=== PATIENT | male | born 1955 | race Two or more races ===

== ENCOUNTER 2016-12-30 02:00 | Emergency (ER) | payer OTHER ==
[2016-12-30] MEDS ORDERED: SODIUM CHLORIDE 0.9% 1,000 ML IV ONE (02:12)
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
[2016-12-30 02:17] VITALS: TEMP 98.6
[2016-12-30 04:10] VITALS: RESP 18
[2016-12-30 08:07] VITALS: BP 132/89; PULSE 77
--- NOTE | 2016-12-31 05:36 | CDI ---
Dear Rodrick Carvalho MD: Please do addendum Impression and Disposition. Thank you, Jef Verduzco, Lab Systems Analyst. If you have any questions, please contact Brick Paving Checker at [phone]. [facility]
== END 2016-12-30 08:07 | disposition home or self-care (01) ==
LOC: EC 02:00
DX: F10.129 Alcohol abuse with intoxication, unspecified (principal)
CPT/HCPCS: 82075; 96360; 96361; 99284

== ENCOUNTER 2017-04-10 06:14 | Emergency (ER) | payer OTHER ==
--- NOTE | 2017-04-10 07:21 | ED ---
URI HPI - General Chief Complaint: Upper Respiratory Infection Stated Complaint: Flu like symptoms Time Seen by Provider: 04/10/17 07:00 Source: patient, RN notes reviewed Mode of arrival: ambulatory Limitations: no limitations - History of Present Illness Initial Comments: This is a 61-year-old male with hypertension for a past medical history who is a nonsmoker who states he had the onset about 3 days ago flulike symptoms cough that was productive chills possibly some fever he states the symptoms last about 3 days and get better but then this morning they seem to recur did a cough with phlegm rhinorrhea felt cold with generalized body aches especially to his feet and legs. He denies any overt headache at this time no overt shortness of breath no nausea vomiting diarrhea. MD Complaint: cough, rhinorrhea, nasal congestion, other - Related Data Home Medications Medication Instructions Recorded Confirmed Hydrochlorothiazide [Hydrodiuril] 25 mg PO DAILY 04/10/17 04/10/17 Hydrocodone/Acetaminophen 1 - 2 tab PO Q12HR PRN 04/10/17 04/10/17 [Hydrocodone/Acetaminophen 5-300] Lisinopril [Zestril] 10 mg PO DAILY 04/10/17 04/10/17 Previous Rx's Medication Instructions Recorded Oseltamivir [Tamiflu] 75 mg PO Q12HR #14 cap 04/10/17 Allergies Allergy/AdvReac Type Severity Reaction Status Date / Time No Known Allergies Allergy Verified 12/30/16 08:06 Review of Systems ROS Statement: Those systems with pertinent positive or pertinent negative responses have been documented in the HPI. ROS Other: All systems not noted in ROS Statement are negative. Past Medical History Past Medical History: No Reported History, Hypertension Additional Past Medical History / Comment(s): Chronic back pain History of Any Multi-Drug Resistant Organisms: None Reported Past Surgical History: Orthopedic Surgery Additional Past Surgical History / Comment(s): foot and leg sx Past Psychological History: No Psychological Hx Reported Smoking Status: Never smoker Past Alcohol Use History: Occasional Past Drug Use History: None Reported General Exam - General Exam Comments Initial Comments: This is a well-developed well-nourished awake alert oriented 3 male Limitations: no limitations General appearance: alert, in no apparent distress Head exam: Present: atraumatic, normocephalic, normal inspection Eye exam: Present: normal appearance, PERRL, EOMI. Absent: scleral icterus, conjunctival injection, periorbital swelling ENT exam: Present: mucous membranes moist, other (Boggy nasal mucosa with clear drainage seen. The oropharynx is essentially clear TMs are slightly dull but normal color.) Neck exam: Present: normal inspection, full ROM, other (No stridor JVD or bruits ). Absent: tenderness, meningismus, lymphadenopathy Respiratory exam: Present: normal lung sounds bilaterally. Absent: respiratory distress, wheezes, rales, rhonchi, stridor Cardiovascular Exam: Present: regular rate, normal rhythm, normal heart sounds. Absent: systolic murmur, diastolic murmur, rubs, gallop, clicks GI/Abdominal exam: Present: soft, normal bowel sounds. Absent: distended, tenderness, guarding, rebound, rigid Extremities exam: Present: normal inspection, full ROM, normal capillary refill. Absent: tenderness, pedal edema, joint swelling, calf tenderness Back exam: Present: normal inspection Neurological exam: Present: alert, oriented X3, CN II-XII intact Psychiatric exam: Present: normal affect, normal mood Skin exam: Present: warm, dry, intact, normal color. Absent: rash Course Vital Signs 04/10/17 06:16 Temperature 96.9 F L Pulse Rate 72 Respiratory 20 Rate O2 Sat by Pulse 98 Oximetry Medical Decision Making - Medical Decision Making I did discuss the findings with the patient has . Patient does have evidence clinically lab results of influenza type A. He does appear the symptoms just started this morning as he had a day between his previous illness and the onset of this occurrence. Patient will be started on Tamiflu. I did discuss hydration and symptomatic care with him. - Lab Data Lab Results 04/10/17 Range/Units 06:28 Influenza Type A RNA Detected H (Not Detectd) Influenza Type B (PCR) Not Detected (Not Detectd) - Radiology Data Radiology results: report reviewed (I did review the imaging and reports no acute findings are seen.), image reviewed Disposition Clinical Impression: Influenza Disposition: HOME SELF-CARE Condition: Good Instructions: Influenza (ED) Prescriptions: Oseltamivir [Tamiflu] 75 mg PO Q12HR #14 cap Referrals: Louie Juarez MD [Primary Care Provider] - 1-2 days
[2017-04-10] MEDS ORDERED: OSELTAMIVIR 75 MG CAP PO STA (07:30)
--- NOTE | 2017-04-10 07:35 | XR ---
EXAMINATION TYPE: XR chest 2V DATE OF EXAM: 04/10/2017 HISTORY: cough. REFERENCE: NONE. FINDINGS: The lungs are clear. Pleural space are clear. The heart is not enlarged. IMPRESSION: NO ACTIVE INTRATHORACIC DISEASE.
[2017-04-10 07:54] VITALS: BP 136/74; PULSE 76; RESP 16; TEMP 97.5
== END 2017-04-10 07:54 | disposition home or self-care (01) ==
LOC: EC 06:14
DX: J09.X2 Influenza due to identified novel influenza A virus with other respiratory manifestations (principal); I10 Essential (primary) hypertension; Z79.899 Other long term (current) drug therapy
CPT/HCPCS: 71046; 87502; 99283

== ENCOUNTER 2017-07-19 09:53 | Day surgery (SDC) | payer OTHER ==
[2017-07-16 08:47] VITALS: BMI 28.1
[~2017-07-19 09:53] MED LIST: LIDOCAINE 1% 20 ML VIAL (10MG/ML) FOR IV START INTRADERMA PRN; MIDAZOLAM 2 MG/2 ML VIAL IV PRN
[2017-07-19 10:19] VITALS: TEMP 97.2
[2017-07-19] MEDS: LACTATED RINGERS 1,000 ML IV SCH ×2 (10:19→11:06)
[2017-07-19] MEDS ORDERED: LIDOCAINE 1% 20 ML VIAL (10MG/ML) FOR IV START INTRADERMA ONE (10:19)
[2017-07-19] MEDS ORDERED: PROPOFOL 10 MG/ML 20 ML VIAL IV ONE (11:08)
[2017-07-19 11:47] VITALS: RESP 18
--- NOTE | 2017-07-19 11:55 | P.PCN ---
Date of Procedure: 07/19/17 Procedure(s) Performed: Procedure: Colonoscopy and polypectomy. Preoperative diagnosis: Screening for neoplasia, patient has history of polyps. Postoperative diagnosis: 1. Diverticulosis with no evidence of acute diverticulitis or strictures. 2. Two right colon polyps and 1 sigmoid polyp snared but no large polyps or cancer. Preparation: HalfLytely prep. Sedation: Was provided by anesthesia. Brief clinical history: The patient is a 61-year-old male who is scheduled for this evaluation for screening for neoplasia because of history of polyps. His last exam was in 2013. At this time, he has no abdominal complaints, leading or anemia. Procedure: With the patient on his left lateral decubitus position and after informed consent and adequate sedation, the perianal area was inspected and it did not show any fissures or fistulas. There were no masses felt on digital rectal examination. The Olympus CFQ 160L video colonoscope was then inserted in the rectum in the usual fashion and advanced to the cecum. There were multiple diverticular orifices seen scattered in the sigmoid and few around the hepatic flexure and on the right side but there was no evidence of acute diverticulitis or strictures. On the right side there were 2 polyps which were small to medium in size, those were snared and retrieved, one by suction and the other by suctioning it to the tip of the endoscope and withdrawing the endoscope and restarting the exam. There was another polyp in the distal sigmoid which was snared and retrieved by suction but there were no large polyps or cancer. I retroflexed the endoscope in the rectum before the endoscope was withdrawn. The patient tolerated the procedure well. Plan: The patient was reassured. Discussed dietary measures. He will follow up with you as planned and I recommended repeat exam in 3-5 years.
[2017-07-19 12:08] VITALS: BP 143/86; PULSE 52
== END 2017-07-19 12:33 | disposition home or self-care (01) ==
LOC: ORWHC2ENDO 09:53
DX: Z12.11 Encounter for screening for malignant neoplasm of colon (principal); D12.2 Benign neoplasm of ascending colon; D12.5 Benign neoplasm of sigmoid colon; K57.30 Diverticulosis of large intestine without perforation or abscess without bleeding; Z86.010 Personal history of colon polyps; I10 Essential (primary) hypertension; Z79.899 Other long term (current) drug therapy
CPT/HCPCS: 88305; 45385; J2704

== ENCOUNTER 2021-10-22 01:21 | Emergency (ER) | payer OTHER ==
--- NOTE | 2021-10-22 01:57 | ED ---
General Adult HPI - General Chief complaint: Alcohol Stated complaint: Altered Mental, Loss of consciousness Time Seen by Provider: 10/22/21 01:34 Source: patient Mode of arrival: ambulatory Limitations: altered mental status - History of Present Illness Initial comments: This patient is a 65-year-old man who states that "I just decided to turn myself and because I am homeless." Patient states he has been drinking and smoking weed and then felt funny. He states he doesn't feel sick but he feels funny. Patient denies having a fall or head injury. No headache. No neck pain. No chest pain or dyspnea. No abdominal pain or vomiting. -: hour(s) Severity scale (1-10): 0 Consistency: constant Improves with: none Worsens with: none Associated Symptoms: denies other symptoms - Related Data Home Medications Medication Instructions Recorded Confirmed hydroCHLOROthiazide [Hydrodiuril] 12.5 mg PO DAILY 04/10/17 07/16/17 lisinopriL [Zestril] 10 mg PO DAILY 04/10/17 07/16/17 Hydrocodone/Acetaminophen 1 tab PO DAILY PRN 07/16/17 07/16/17 [Hydrocodon-Acetaminoph 2.5-325] Vitamin D (Unknown Dose) 1 cap PO QMONTH 07/16/17 Allergies Allergy/AdvReac Type Severity Reaction Status Date / Time No Known Allergies Allergy Verified 10/22/21 01:32 Review of Systems ROS Statement: Those systems with pertinent positive or pertinent negative responses have been documented in the HPI. ROS Other: All systems not noted in ROS Statement are negative. Constitutional: Denies: fever, weakness Eyes: Denies: vision change Respiratory: Denies: cough, dyspnea Cardiovascular: Denies: chest pain, palpitations, orthopnea Gastrointestinal: Denies: abdominal pain, vomiting, diarrhea Genitourinary: Denies: dysuria Musculoskeletal: Denies: back pain Neurological: Denies: headache Psychiatric: Denies: homicidal thoughts, suicidal thoughts Past Medical History Past Medical History: Hypertension Additional Past Medical History / Comment(s): DDD WITH BACK PAIN, HX OF COLON POLYPS. History of Any Multi-Drug Resistant Organisms: None Reported Past Surgical History: No Surgical Hx Reported Additional Past Surgical History / Comment(s): COLONOSCOPY Past Anesthesia/Blood Transfusion Reactions: No Reported Reaction Past Psychological History: No Psychological Hx Reported Smoking Status: Current every day smoker Past Alcohol Use History: Daily Past Drug Use History: Marijuana - Past Family History Mother Family Medical History: Cancer Additional Family Medical History / Comment(s): OVARIAN CANCER Father Family Medical History: Cancer Additional Family Medical History / Comment(s): LUNG CANCER General Exam Limitations: altered mental status General appearance: alert, in no apparent distress Head exam: Present: atraumatic, normocephalic Eye exam: Present: normal appearance. Absent: scleral icterus, conjunctival i njection Neck exam: Present: normal inspection, full ROM Respiratory exam: Present: normal lung sounds bilaterally. Absent: respiratory distress, wheezes, rales, rhonchi, stridor Cardiovascular Exam: Present: regular rate, normal rhythm, normal heart sounds. Absent: systolic murmur, diastolic murmur, rubs, gallop GI/Abdominal exam: Present: soft. Absent: distended, tenderness, guarding, rebound, rigid, mass Extremities exam: Present: normal inspection, normal capillary refill. Absent: pedal edema, calf tenderness Back exam: Present: normal inspection. Absent: CVA tenderness (R), CVA tenderness (L) Neurological exam: Present: alert Skin exam: Present: warm, dry, intact, normal color. Absent: rash Course Vital Signs 10/22/21 01:27 Temperature 98 F Pulse Rate 54 L Respiratory 18 Rate Blood Pressure 141/87 O2 Sat by Pulse 99 Oximetry Medical Decision Making - Lab Data Result diagrams: 10/22/21 04:45 10/22/21 04:45 Lab Results 10/22/21 10/22/21 10/22/21 Range/Units 01:42 04:45 04:45 WBC 6.1 (3.8-10.6) k/uL RBC 4.95 (4.30-5.90) m/uL Hgb 15.5 (13.0-17.5) gm/dL Hct 47.9 (39.0-53.0) % MCV 96.8 (80.0-100.0) fL MCH 31.4 (25.0-35.0) pg MCHC 32.4 (31.0-37.0) g/dL RDW 12.9 (11.5-15.5) % Plt Count 204 (150-450) k/uL MPV 7.9 Neutrophils % 48 % Lymphocytes % 33 % Monocytes % 8 % Eosinophils % 7 % Basophils % 1 % Neutrophils # 2.9 (1.3-7.7) k/uL Lymphocytes # 2.0 (1.0-4.8) k/uL Monocytes # 0.5 (0-1.0) k/uL Eosinophils # 0.4 (0-0.7) k/uL Basophils # 0.1 (0-0.2) k/uL Sodium 142 (137-145) mmol/L Potassium 4.6 (3.5-5.1) mmol/L Chloride 108 H (98-107) mmol/L Carbon Dioxide 25 (22-30) mmol/L Anion Gap 9 mmol/L BUN 7 L (9-20) mg/dL Creatinine 1.03 (0.66-1.25) mg/dL Est GFR (CKD-EPI)AfAm 87 (>60 ml/min/1.73 sqM) Est GFR (CKD-EPI)NonAf 75 (>60 ml/min/1.73 sqM) Glucose 102 H (74-99) mg/dL Calcium 8.7 (8.4-10.2) mg/dL Total Bilirubin 0.5 (0.2-1.3) mg/dL AST 51 (17-59) U/L ALT 51 H (4-49) U/L Alkaline Phosphatase 55 (38-126) U/L Total Protein 7.2 (6.3-8.2) g/dL Albumin 4.2 (3.5-5.0) g/dL Urine Opiates Screen Not Detected (NotDetected) Ur Oxycodone Screen Not Detected (NotDetected) Urine Methadone Screen Not Detected (NotDetected) Ur Propoxyphene Screen Not Detected (NotDetected) Ur Barbiturates Screen Not Detected (NotDetected) U Tricyclic Antidepress Not Detected (NotDetected) Ur Phencyclidine Scrn Not Detected (NotDetected) Ur Amphetamines Screen Not Detected (NotDetected) U Methamphetamines Scrn Not Detected (NotDetected) U Benzodiazepines Scrn Not Detected (NotDetected) Urine Cocaine Screen Not Detected (NotDetected) U Marijuana (THC) Screen Not Detected (NotDetected) Disposition Clinical Impression: Alcoholic intoxication Disposition: HOME SELF-CARE Condition: Fair Instructions (If sedation given, give patient instructions): Alcohol Intoxication (ED) Is patient prescribed a controlled substance at d/c from ED?: No Referrals: Louie Juarez MD [STAFF PHYSICIAN] - 1-2 days
[2021-10-22 02:38] LABS: Amphetamine Screen,Urine Not Detected (NotDetected); Barbiturate Screen,Urine Not Detected (NotDetected); Benzodiazepines Screen,Urine Not Detected (NotDetected); Cocaine Screen,Urine Not Detected (NotDetected); Methadone Screen, Urine Not Detected (NotDetected); Opiate Screen,Urine Not Detected (NotDetected); Oxycodone Screen, Urine Not Detected (NotDetected); Phencyclidine Screen,Urine Not Detected (NotDetected); Tricyclic Antidepressant,Urine Not Detected (NotDetected); Urn Cannabinoid Scrn Not Detected (NotDetected)
[2021-10-22 05:10] LABS: Basophils # (A) 0.1 k/uL (0-0.2); Basophils % (A) 1 %; Eosinophils # (A) 0.4 k/uL (0-0.7); Eosinophils % (A) 7 %; HCT 47.9 % (39.0-53.0); HGB 15.5 gm/dL (13.0-17.5); Lymphocytes % (A) 33 %; MCH 31.4 pg (25.0-35.0); MCHC 32.4 g/dL (31.0-37.0); MCV 96.8 fL (80.0-100.0); Mean Platelet Volume 7.9; Monocytes # (A) 0.5 k/uL (0-1.0); Monocytes % (A) 8 %; Neutrophils # (A) 2.9 k/uL (1.3-7.7); Neutrophils % (A) 48 %; Platelet Count 204 k/uL (150-450); RBC 4.95 m/uL (4.30-5.90); RDW 12.9 % (11.5-15.5); WBC 6.1 k/uL (3.8-10.6)
[2021-10-22 05:35] LABS: Albumin 4.2 g/dL (3.5-5.0); Calcium 8.7 mg/dL (8.4-10.2); Potassium 4.6 mmol/L (3.5-5.1); Total Bilirubin 0.5 mg/dL (0.2-1.3); Total Protein 7.2 g/dL (6.3-8.2)
[2021-10-22 06:47] VITALS: BP 133/78; PULSE 78; RESP 14; TEMP 97.7
== END 2021-10-22 06:48 | disposition home or self-care (01) ==
LOC: EC 01:21
DX: F10.129 Alcohol abuse with intoxication, unspecified (principal); I10 Essential (primary) hypertension; F17.200 Nicotine dependence, unspecified, uncomplicated
CPT/HCPCS: 36415; 80053; 80306; 82075; 85025; 99284

== ENCOUNTER 2021-10-25 08:15 | Emergency (ER) | payer OTHER ==
[2021-10-25 08:19] VITALS: BP 154/89; PULSE 58; RESP 18; TEMP 98
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
== END 2021-10-25 08:38 | disposition home or self-care (01) ==
LOC: EC 08:15
DX: Z00.00 Encounter for general adult medical examination without abnormal findings (principal); I10 Essential (primary) hypertension; F17.200 Nicotine dependence, unspecified, uncomplicated
CPT/HCPCS: 99284